=== PATIENT | female | born 1985 | race Caucasian/White ===

== ENCOUNTER 2023-02-26 18:44 | Emergency (ER) | payer BC, SELFPAY ==
[2023-02-26 19:04] VITALS: BP 141/87; PULSE 76; RESP 18; TEMP 36.8; O2SAT 98; BMI 27.4
--- NOTE | 2023-02-26 19:08 | ED_ITS ---
HPI - Animal Bite General Chief Complaint: Animal Bite <ELAINE Hair - Last Filed: 02/26/23 19:09> Stated Complaint: Dog bite <ELAINE Hair - Last Filed: 02/26/23 19:09> Time Seen by Provider: 02/26/23 19:34 <ELAINE Hair - Last Filed: 02/26/23 19:09> Source: patient <Yue Bruner MD - Last Filed: 02/26/23 20:14> Mode of arrival: ambulatory <Yue Bruner MD - Last Filed: 02/26/23 20:14> Limitations: no limitations <Yue Bruner MD - Last Filed: 02/26/23 20:14> History of Present Illness HPI narrative: Patient comes emergency room complaining of a dog bite the left leg. Patient states that she was walking her own dog in the neighborhood, another dog tried attacking the patient's dog, patient got caught in the middle. Patient states that she does not know anything about the other dog, but she has seen it in the neighborhood before. States that she was able to exchange 1 hours with the dog's winder hand. Patient is not aware if she is up-to-date with her tetanus shot <Yue Bruner MD - Last Filed: 02/26/23 20:14> Related Data Home Medications: Previous Rx's Medication Instructions Recorded amoxicillin 500 mg-potassium 1 tab PO BID #13 tabs 02/26/23 clavulanate 125 mg tablet (Augmentin) amoxicillin 500 mg-potassium 1 tab PO BID #13 tabs 02/26/23 clavulanate 125 mg tablet (Augmentin) <ELAINE Hair - Last Filed: 02/26/23 19:09> Allergies/Adverse Reactions: Allergies Allergy/AdvReac Type Severity Reaction Status Date / Time No Known Allergies Allergy Verified 02/26/23 19:05 <ELAINE Hair - Last Filed: 02/26/23 19:09> Review of Systems Review of Systems: Constitutional : No Weight loss, No Fever, No Chills, No Night Sweats, No Fatigue, No Malaise ENT/Mouth : No Hearing loss, No Ear Pain, No Nasal Congestion, No Sinus Pain, No Hoarseness, No sore throat, No Rhinorrhea, No Swallowing Difficulty Eyes: No Eye Pain, No Swelling, No Redness, No Foreign Body, No Discharge, No Vision Changes Cardiovascular : No Chest Pain, No SOB, No Dyspnea on Exertion, No Orthopnea, No Edema, No Palpitations Respiratory : No Cough, No Sputum, No Wheezing, No Smoke Exposure, No Dyspnea Gastrointestinal : No Nausea, No Vomiting, No Diarrhea, No Constipation, No abdominal Pain, No Hematochezia, No Melena Genitourinary : no irregular bleeding, No Dysuria, No Urinary Frequency, No Hematuria, No Urinary Incontinence, No Urgency, No Flank Pain, No Urinary Flow Changes, No Hesitancy Musculoskeletal : No joint pain, No Myalgias, No Joint Swelling Skin : Dog bite to the distal lower extremity on the left Neuro : No Weakness, No Numbness, No Paresthesias, No Loss of Consciousness, No Dizziness, No Headache Psych : No Anxiety/Panic, No Depression, No SI/HI/AH/VH, No Social Issues, Heme/Lymph: No Bruising, No Bleeding,No Lymphadenopathy Endocrine : No Polyuria, No Polydipsia, No Temperature Intolerance <Yue Bruner MD - Last Filed: 02/26/23 20:14> [facility] Social History Social History: Social History Advance Directives: No Advance Directives Information Provided: No <ELAINE Hair - Last Filed: 02/26/23 19:09> Physical Exam ED Vital Signs: Vital Signs - 24 hr 02/26/23 19:04 Temperature 98.2 F Pulse Rate 76 Respiratory Rate 18 Blood Pressure 141/87 H Pulse Oximetry 98 Oxygen Delivery Method Room Air BMI result Body Mass Index 27.4 <ELAINE Hair - Last Filed: 02/26/23 19:09> Vital Signs - 24 hr 02/26/23 19:04 Temperature 98.2 F Pulse Rate 76 Respiratory Rate 18 Blood Pressure 141/87 H Pulse Oximetry 98 Oxygen Delivery Method Room Air BMI result Body Mass Index 27.4 <Yue Bruner MD - Last Filed: 02/26/23 20:14> Const Other: Appearance: Alert. Oriented X3. No acute distress. Eyes: Pupils equal, round and reactive to light. ENT: Pharynx normal. Neck: Normal inspection. Neck supple. No lymph nodes noted. No crepitus CVS: Normal heart rate and rhythm. Pulses normal. Normal S1 and S2 Respiratory: No respiratory distress. Breath sounds normal. No Wheezing. No rales Abdomen: Soft and nontender. No rigidity. No distention. Skin: Skin warm and dry. There is a 2 cm superficial puncture wound to the calf on the left side. Extremities: No lower extremity edema. No Lacerations. No Rash Neuro: Oriented X 3. No motor deficit. No sensory deficit. Moving all extremities. No slurred speech. CN 2 through 12 grossly intact Psych: calm, cooperative, normal affect <Yue Bruner MD - Last Filed: 02/26/23 20:14> Course Course Course Narrative: This is an RME: Additional HPI, ROS, PE not included below will be deferred to primary provider. 37-year-old female presents to the emergency department for evaluation of dog bite to left medial calf occurred today, this was a neighbor's dog, dull is unvaccinated. However unclear, animal Control has been called, pending results. Patient up-to-date on tetanus shot. Will given today. She does have a small puncture wound to the left medial aspect of thigh, no surrounding erythema. Patient not a diabetic without significant medical history. Plan at this time tetanus shot, likely rabies series <ELAINE Hair - Last Filed: 02/26/23 19:09> Medications Administered Discontinued Medications Generic Name Dose Route Start Last Admin Trade Name Freq PRN Reason Stop Dose Admin Amoxicillin/Clavulanate Potassium 500 mg 02/26/23 19:57 02/26/23 20:09 Amoxicillin/Potassium Clav 500 Mg Tablet PO 02/26/23 19:58 500 mg ONCE ONE Administration Diphtheria/Tetanus/Acell Pertussis 0.5 ml 02/26/23 19:05 02/26/23 19:49 Diphth,Pertus(Acell),Tet Adult 0.5 Ml Syringe IM 02/26/23 19:06 0.5 ml .ONCE ONE Administration <ELAINE Hair - Last Filed: 02/26/23 19:09> Medications Administered Discontinued Medications Generic Name Dose Route Start Last Admin Trade Name Freq PRN Reason Stop Dose Admin Amoxicillin/Clavulanate Potassium 500 mg 02/26/23 19:57 02/26/23 20:09 Amoxicillin/Potassium Clav 500 Mg Tablet PO 02/26/23 19:58 500 mg ONCE ONE Administration Diphtheria/Tetanus/Acell Pertussis 0.5 ml 02/26/23 19:05 02/26/23 19:49 Diphth,Pertus(Acell),Tet Adult 0.5 Ml Syringe IM 02/26/23 19:06 0.5 ml .ONCE ONE Administration <Yue Bruner MD - Last Filed: 02/26/23 20:14> Medical Decision Making Medical Decision Making MDM Narrative: -I discussed with the patient that ideally she should be getting the rabies immunization series is since patient does not know anything about the dog. It is unlikely that the patient has rabies. However, the immunizations are still recommended. 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 Today, patient agreed to have the Tdap booster and the 1st dose of antibiotics. Patient received the 1st dose of Augmentin in the ED <Yue Bruner MD - Last Filed: 02/26/23 20:14> Differential Diagnosis Differential Diagnoses: The differential diagnosis associated with the presentation includes (An imal bite) <Yue Bruner MD - Last Filed: 02/26/23 20:14> Discharge Plan Discharge Clinical Impression: Dog bite <ELAINE Hair - Last Filed: 02/26/23 19:09> Patient Disposition: Home, Self-Care <ELAINE Hair - Last Filed: 02/26/23 19:09> Instructions: Animal Bite (ED) <ELAINE Hair - Last Filed: 02/26/23 19:09> Additional Instructions: Please follow-up with your primary care physician tomorrow. If you have any worsening or new symptoms, please return to the emergency room or call 911 <ELAINE Hair - Last Filed: 02/26/23 19:09> Prescriptions: New amoxicillin-pot clavulanate [Augmentin] 500-125 mg tablet 1 tab PO BID Qty: 13 0RF amoxicillin-pot clavulanate [Augmentin] 500-125 mg tablet 1 tab PO BID Qty: 13 0RF <ELAINE Hair - Last Filed: 02/26/23 19:09>
[2023-02-26] MEDS: Diphth,Pertus(ACell),Tet Adult 0.5 ML SYRINGE IM (19:49)
[2023-02-26] MEDS: Amoxicillin/Potassium Clav 500 MG TABLET PO (20:09)
--- NOTE | 2023-02-26 20:15 | PC.NURSE ---
pt medicated with per mar- tdap updated vis given. pt declines rabies series at this time as she is scheduled to begin another cycle of IVF treatment, and would like to consult with her providers re:risk/benefit. reinforced education given by provider that pt should return to dept as soon as possible if she does wish to have the rabies series. pt understands and agrees with plan
== END 2023-02-26 20:18 | disposition home or self-care (01) ==
PROVIDERS: Emergency Provider Emergency Medicine; PCP Nurse Practitioner Adult Health
DX: S81.852A Open bite, left lower leg, initial encounter (principal); W54.0XXA Bitten by dog, initial encounter; Y93.K1 Activity, walking an animal; Y92.414 Local residential or business street as the place of occurrence of the external cause; Y99.9 Unspecified external cause status
CPT/HCPCS: 90471; 90715; 99282; 99284